=== PATIENT | male | born 1965 | race Two or more races ===

== ENCOUNTER 2018-06-27 11:05 | Emergency (ER) | payer OTHER ==
[~2018-06-27] VITALS: Ht 162.6 cm; Wt 69.4 kg
[2018-06-27 11:31] VITALS: BP 144/100; Ht 162.6 cm; Wt 69.4 kg
== END 2018-06-27 12:03 | disposition home or self-care (01) ==
LOC: ED 11:05
DX: B02.9 Zoster without complications (principal); I10 Essential (primary) hypertension; F17.210 Nicotine dependence, cigarettes, uncomplicated